=== PATIENT | male | born 1955 | race Caucasian/White ===

== ENCOUNTER 2017-05-16 14:42 | Emergency (ER) | payer BC ==
[2017-05-16] MEDS ORDERED: Sodium Chloride 0.9% 10 ML Syringe FLUSH PRN (15:31)
[2017-05-16] MEDS ORDERED: Sodium Chloride 0.9% 1,000 ML IV ONE (15:32)
--- NOTE | 2017-05-16 16:13 | EDM.PDOC ---
ED HPI GENERAL MEDICAL PROBLEM - General Chief Complaint: Headache Stated Complaint: SYNCOPE/NAUSEA Time Seen by Provider: 05/16/17 15:20 Source of Information: Reports: Patient History Limitations: Reports: No Limitations - History of Present Illness INITIAL COMMENTS - FREE TEXT/NARRATIVE: 62-year-old male presents for evaluation treatment of a headache. Patient reports he was at work. Reports that Today he had a sudden onset of a severe headache and his occipital scalp radiating down to his neck. He reports associated symptoms of nausea and dizziness. He denies any syncope, vomiting, fevers, cough, urinary symptoms, earaches or sore throat. He states that he has had headaches before but he has never had a headache like this. No treatment prior to arrival in the ER. Patient reports he is healthy with no known medical conditions. He is not on any medications. Onset: Today, Sudden Duration: Hour(s): (3.5) Location: Reports: Head, Neck Headache Pain Score (Numeric/FACES): 10 - Related Data Allergies Allergy/AdvReac Type Severity Reaction Status Date / Time No Known Allergies Allergy Verified 05/16/17 15:01 Home Meds: Home Meds . [No Known Home Meds] 05/16/17 [History] Past Medical History Gastrointestinal History: Reports: None - Past Surgical History GI Surgical History: Reports: Cholecystectomy Musculoskeletal Surgical History: Reports: Knee Replacement Social & Family History - Family History Family Medical History: Noncontributory - Tobacco Use Smoking Status *Q: Never Smoker - Caffeine Use Caffeine Use: Reports: None - Recreational Drug Use Recreational Drug Use: No ED ROS GENERAL - Review of Systems Review Of Systems: See Below Constitutional: Denies: Fever HEENT: Denies: Ear Pain, Sinus Problem Respiratory: Denies: Cough GI/Abdominal: Reports: Nausea. Denies: Abdominal Pain, Diarrhea, Vomiting : Reports: No Symptoms. Denies: Dysuria Musculoskeletal: Reports: Neck Pain. Denies: Back Pain Neurological: Reports: Dizziness, Headache. Denies: Syncope - Physical Exam Exam: See Below Exam Limited By: No Limitations General Appearance: Alert, WD/WN, No Apparent Distress Eye Exam: Bilateral Eye: EOMI, PERRL Ears: Normal External Exam, Normal Canal, Hearing Grossly Normal, Normal TMs Nose: Normal Inspection Throat/Mouth: Normal Inspection, Normal Lips, Normal Gums, Normal Oropharynx, Normal Voice, No Airway Compromise Head Exam: Atraumatic, Normocephalic Neck: Normal Inspection, Supple, Full Range of Motion, Tender Midline Respiratory/Chest: No Respiratory Distress, Lungs Clear, Normal Breath Sounds Cardiovascular: Normal Peripheral Pulses, Regular Rate, Rhythm, No Murmur Neuro Exam (Abbreviated): Alert, Oriented, Normal Cognition, Normal Gait, No Motor/Sensory Deficits Back Exam: Normal Inspection Psychiatric: Normal Affect, Normal Mood Skin Exam: Warm, Dry, Normal Color Course - Vital Signs Last Recorded V/S: Last Vital Signs Temp 37.9 C 05/16/17 18:34 Pulse 84 05/16/17 18:34 Resp 22 H 05/16/17 15:01 BP 139/74 05/16/17 18:34 Pulse Ox 98 05/16/17 18:34 - Orders/Labs/Meds Labs: Laboratory Tests 05/16/17 05/16/17 Range/Units 15:08 15:08 WBC 9.87 H (4.23-9.07) K/mm3 RBC 5.19 (4.63-6.08) M/mm3 Hgb 15.5 (13.7-17.5) gm/L Hct 45.5 (40.1-51.0) % MCV 87.7 (79.0-92.2) fl MCH 29.9 (25.7-32.2) pg MCHC 34.1 (32.2-35.5) g/dl RDW Std Deviation 42.2 (35.1-43.9) fL Plt Count 193 (163-337) K/mm3 MPV 10.2 (9.4-12.3) fl Neut % (Auto) 82.8 H (34.0-67.9) % Lymph % (Auto) 8.6 L (21.8-53.1) % Day % (Auto) 6.1 (5.3-12.2) % Eos % (Auto) 2.1 (0.8-7.0) Baso % (Auto) 0.2 (0.1-1.2) % Neut # (Auto) 8.17 H (1.78-5.38) K/mm3 Lymph # (Auto) 0.85 L (1.32-3.57) K/mm3 Day # (Auto) 0.60 (0.30-0.82) K/mm3 Eos # (Auto) 0.21 (0.04-0.54) K/mm3 Baso # (Auto) 0.02 (0.01-0.08) K/mm3 Manual Slide Review Normal smear Sodium 141 (136-145) mEq/L Potassium 3.8 (3.5-5.1) mEq/L Chloride 106 (98-107) mEq/L Carbon Dioxide 24 (21-32) mEq/L Anion Gap 14.8 (5-15) BUN 16 (7-18) mg/dL Creatinine 1.2 (0.7-1.3) mg/dL Est Cr Clr Drug Dosing 66.75 mL/min Estimated GFR (MDRD) > 60 (>60) mL/min BUN/Creatinine Ratio 13.3 L (14-18) Glucose 101 (80-115) mg/dL Calcium 8.7 (8.5-10.1) mg/dL Total Bilirubin 0.8 (0.2-1.0) mg/dL AST 23 (15-37) U/L ALT 46 (16-63) U/L Alkaline Phosphatase 72 (46-116) U/L Total Protein 7.3 (6.4-8.2) g/dl Albumin 3.9 (3.4-5.0) g/dl Globulin 3.4 gm/dL Albumin/Globulin Ratio 1.2 (1-2) Meds: Medications Discontinued Medications Generic Name Dose Route Start Last Admin Trade Name Freq PRN Reason Stop Dose Admin Diphenhydramine HCl 50 mg 05/16/17 16:46 05/16/17 16:53 Benadryl IVPUSH 05/16/17 16:47 50 mg ONETIME ONE Administration Sodium Chloride 1,000 mls @ 999 mls/hr 05/16/17 15:32 05/16/17 15:38 Normal Saline IV 05/16/17 16:32 999 mls/hr ONETIME ONE Administration Ketorolac Tromethamine 30 mg 05/16/17 16:46 05/16/17 17:00 Toradol IVPUSH 05/16/17 16:47 30 mg ONETIME ONE Administration Metoclopramide HCl 5 mg 05/16/17 16:46 05/16/17 16:56 Reglan IVPUSH 05/16/17 16:47 5 mg ONETIME ONE Administration Sodium Chloride 10 ml 05/16/17 15:31 05/16/17 15:38 Saline Flush FLUSH 10 ml ASDIRECTED PRN Administration Keep Vein Open - Radiology Interpretation Free Text/Narrative:: CT of the head without contrast impression per Dr. Andres: 1. Sinus findings most likely representin mild chronic sinusitis. 2. No acute intracranial abnormality is identified CT of the cervical spine without contrast impression per Dr. Andres: 1. Moderate neural foraminal stenosis noted at C3-C4 on the left side. This is due to degenerative spurring from the apophyseal joint as well as degenerative spurring from the uncovertebral joint. 2. Other degenerative changes. 3. Nothing acute is identified on CT study of the cervical spine. CT Results Date: 05/16/17 - Re-Assessments/Exams Free Text/Narrative Re-Assessment/Exam: 05/16/17 17:32 Labs returned. WBC 9.87, hgb is 15.5 and plts are 193 sodium is 141, potassium is 3.8, chloride is 106. Anion gap is 14.8. Glucose is 101. Creatinine is 1.2. I Reviewed the labs and CT with the patient. Once CT was clear of any bleed I ordered toradol, benadryl and reglan. At this point the headache is a 4 or 5 out of 10. Noted that he lightly elevated temp now. He denies any cough, abdominal pain, diarrhea, urinary symptoms or anything concerning for infection. At this point feels comfortable going home. We will discharge him home. Discharge instructions as document. Departure - Departure Time of Disposition: 17:33 Disposition: Home, Self-Care 01 Condition: Fair Clinical Impression: Headache - Discharge Information Instructions: General Headache Without Cause Referrals: PCP,None [Primary Care Provider] - Kristy Santana [Physician] - Forms: ED Department Discharge Additional Instructions: go home and rest in a dark quiet room. Make sure drinking plenty of fluids. If you continue to have trouble with headaches I recommend follow-up with family medicine. Recommend Dr. Rojas. Call [phone] Rojas. Please return to ER if your symptoms change or worsen.
--- NOTE | 2017-05-16 16:20 | CT ---
CT cervical spine Technique: Multiple axial sections were obtained from above C1 inferiorly to the top the C1. C7-T1 articulation was not included on the exam. Findings: Mild disc space narrowing is noted at C5-C6 and C6-C7. Slight posterior ridging is noted at C5-C6 and C6-C7. Endplate osteophytes are noted at C2-C3, C4-C5, C5-C6 and C6-C7. Mastoid sinuses and middle ear cavities are clear. No posterior skull base abnormality is seen. Moderately severe left-sided neural foraminal stenosis noted at C3-C4. Other neural foramina are patent. No bony central canal stenosis is seen. Vertebral bodies and posterior arches are intact with no fracture being seen. No abnormal subluxation is seen on the reconstructed sagittal images. Degenerative apophyseal change is seen most prominent at C3-C4 on the left side. Mild spurring is noted within the left uncovertebral joint at C3-C4. Impression: 1. Moderate neural foraminal stenosis noted at C3-C4 on the left side. This is due to degenerative spurring from the apophyseal joint as well as degenerative spurring from the uncovertebral joint. 2. Other degenerative change as noted above. 3. Nothing acute is identified on CT study of the cervical spine. Note is made that C7 and T1 were not included on the study. Diagnostic code #3
--- NOTE | 2017-05-16 16:39 | CT ---
Head CT Technique: Multiple axial sections through the brain were obtained. Intravenous contrast was not utilized. Comparison: No previous study. Findings: Ventricles along with basal cisterns and sulci over convexities are within normal limits for the patient's age. No abnormal parenchymal densities are seen. No evidence of intracranial hemorrhage. No midline shift or mass effect is seen. Moderate mucosal thickening is seen within the inferior maxillary sinuses. Paranasal sinuses are otherwise clear. No air-fluid levels are seen. No acute calvarial abnormality is seen. Impression: 1. Sinus findings most likely representing mild chronic sinusitis. 2. No acute intracranial abnormality is identified. Diagnostic code #2
[2017-05-16] MEDS ORDERED: diphenhydrAMINE 50 MG/ML SDV IVPUSH ONE (16:46)
[2017-05-16] MEDS ORDERED: Ketorolac 30 MG/ML SDV IVPUSH ONE (16:46)
[2017-05-16] MEDS ORDERED: Metoclopramide 10 MG/2 ML SDV IVPUSH ONE (16:46)
[2017-05-16 18:35] VITALS: BP 139/74
== END 2017-05-16 18:10 | disposition home or self-care (01) ==
LOC: JD.ED 14:42
DX: R51 Headache (principal); Z90.49 Acquired absence of other specified parts of digestive tract
CPT/HCPCS: 36415; 70450; 72125; 80053; 85025; 96361; 96374; 96375; 99284; J1200; J1885; J2765; J7040; J7050; 99283

== ENCOUNTER 2021-01-07 18:33 | Emergency (ER) | payer BC ==
--- NOTE | 2021-01-07 18:51 | EDM.PDOC ---
ED HPI GENERAL MEDICAL PROBLEM - General Chief Complaint: Lower Extremity Injury/Pain Stated Complaint: SENT BY FIGUEROA/BLOOD CLOT Time Seen by Provider: 01/07/21 18:51 Source of Information: Reports: Patient History Limitations: Reports: No Limitations - History of Present Illness INITIAL COMMENTS - FREE TEXT/NARRATIVE: 65-year-old male presents to the ED with a confirmed extensive DVT in his right lower extremity that involves popliteal anterior posterior tibial veins and superficial femoral with clot at the femoral superficial femoral junction in the groin. He has no symptoms of PE such as dyspnea, cough, hemoptysis or pleuritic pain. O2 sats are 97% on room air. Patient is scheduled for [facility] in [place] tomorrow. Patient has been doing a home exercise program which involves pedaling with his legs and knees almost at 90 degree angle i.e. more of an up-and-down type exercise that might of kinked off the popliteal vein right leg. There is no clinical evidence of DVT in the left lower extremity. He was sent over from [facility] where Doppler ultrasound confirmed extensive DVT. He has labs that were done preoperatively by Dr. Blakely that reveal that he has normal renal function with a creatinine of 1.2 and a GFR greater than 60. Patient has no past history of DVT. No trauma to the right lower extremity. He is active feeding his horses twice daily walking most of the day no prolonged sitting no recent prolonged travel history. Initiated popliteal pain 3 days ago and then obvious significant swelling left calf over the last 2 days with mild pain on walking. Onset: Gradual Onset Date: 01/05/21 Duration: Day(s):, Getting Worse Location: Reports: Lower Extremity, Right (Right lower extremity is swollen) Quality: Reports: Ache, Throbbing Severity: Mild Improves with: Reports: Rest Worsens with: Reports: Movement Context: Reports: Other (Spontaneous occurrence.). Denies: Activity (Walking), Exercise, Lifting, Sick Contact, Trauma Associated Symptoms: Denies: No Other Symptoms, Confusion, Chest Pain, Cough, cough w sputum, Diaphoresis, Fever/Chills, Headaches, Loss of Appetite, Malaise, Nausea/Vomiting, Rash, Seizure, Shortness of Breath, Syncope, Weakness Treatments PICKER: Reports: Other (see below) (Stopped Celebrex yesterday.) Other Treatments PICKER: tylenol this am Right Leg Pain Score (Numeric/FACES): 4 - Related Data Allergies Allergy/AdvReac Type Severity Reaction Status Date / Time No Known Allergies Allergy Verified 05/16/17 15:01 Home Meds: Home Meds Rivaroxaban [Xarelto] 15 mg PO BID #42 tab 01/07/21 [Rx] Rivaroxaban [Xarelto] 20 mg PO DAILY #30 tablet 01/07/21 [Rx] Past Medical History Gastrointestinal History: Reports: None Musculoskeletal History: Reports: Arthritis, Other (See Below) Other Musculoskeletal History: suppose to have left knee replacement but due to DVT-cancelled - Infectious Disease History Infectious Disease History: Reports: Chicken Pox, Measles - Past Surgical History GI Surgical History: Reports: Cholecystectomy Musculoskeletal Surgical History: Reports: Arthroscopic Procedure Other Musculoskeletal Surgeries/Procedures:: ACL repaIr Social & Family History - Family History Family Medical History: No Pertinent Family History - Tobacco Use Tobacco Use Status *Q: Never Tobacco User - Caffeine Use Caffeine Use: Reports: Soda - Recreational Drug Use Recreational Drug Use: No - Living Situation & Occupation Living situation: Reports: (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 Denies: Shortness of Breath, Wheezing Cardiovascular: Reports: No Symptoms GI/Abdominal: Reports: No Symptoms. Denies: Abdominal Pain, Decreased Appetite, Diarrhea Genitourinary: Reports: Other (nocturia x 2 ) Musculoskeletal: Reports: Joint Pain (Knees hips low back shoulders and neck at times.) Skin: Reports: No Symptoms Neurological: Reports: No Symptoms Psychiatric: Reports: No Symptoms ED EXAM, GENERAL - Physical Exam Exam: See Below Exam Limited By: No Limitations General Appearance: Alert, WD/WN, No Apparent Distress, Other (He has no known history of hypertension.) Eye Exam: Bilateral Eye: Normal Inspection (No blepharal pallor or scleral icterus.) Throat/Mouth: Normal Inspection, Normal Lips, Normal Teeth, Normal Oropharynx Head: Atraumatic, Normocephalic Neck: Normal Inspection, Supple, Non-Tender, Full Range of Motion, Lymphadenopathy (L). No: Lymphadenopathy (R) Respiratory/Chest: Lungs Clear, Normal Breath Sounds, Chest Non-Tender. No: Decreased Breath Sounds, Crackles, Rales, Rhonchi, Wheezing Cardiovascular: Normal Peripheral Pulses, Regular Rate, Rhythm, No Edema, No Gallop, No Murmur, No Rub Peripheral Pulses: 2+: Posterior Tibial (L), Posterior Tibial (R), Dorsalis Pedis (L), Dorsalis Pedis (R), 3+: Carotid (L), Carotid (R) GI/Abdominal: Normal Bowel Sounds, Soft, Non-Tender, No Organomegaly, No Mass, Pelvis Stable, Other (Mildly obese. Evidence of previous) (Male) Exam: No Hernia ( cholecystectomy.) Back Exam: Normal Inspection, Full Range of Motion. No: CVA Tenderness (L), CVA Tenderness (R) Extremities: Other (Thigh or groin. Clinically has DVT right lower extremity.) Neurological: Alert, Oriented, CN II-XII Intact, Normal Cognition. No: Normal Gait Psychiatric: Normal Affect, Normal Mood Skin Exam: Warm, Dry, Intact, Normal Color, No Rash #1 Interpretation EKG Date: 01/07/21 Time: 20:39 Rhythm: NSR Rate (Beats/Min): 60 [place]: Normal P-Wave: Present QRS: Other (Early R wave transition consider right ventricular hypertrophy/septal hypertrophy pattern. There are Q waves in leads II, III and aVF suggestive of an old inferior wall myocardial infarction.) ST-T: Other (Diffuse early repolarization pattern with no signs of ischemia) QT: Normal EKG Interpretation Comments: Abnormal ECG Course - Vital Signs Last Recorded V/S: Last Vital Signs Temp 36.4 C 01/07/21 21: Pulse 88 01/07/21 21: Resp 16 01/07/21 21: BP 125/85 01/07/21 21:01 Pulse Ox 94 L 01/07/21 21:01 - Orders/Labs/Meds Labs: Laboratory Tests 01/07/21 01/07/21 01/07/21 Range/Units 19:21 19:21 19:21 PT (9.7-12.0) SECONDS INR APTT (21.7-31.4) SECONDS Functional Protein C (73-180) % Functional Protein S (63-140) % Antithrombin III Ag 73 (72-124) % Factor V Leiden Mutat Comment Anti-Cardiolipin IgG Ab <9 (0-14) GPL U/mL 01/07/21 01/07/21 01/07/21 Range/Units 19:21 19:21 19:21 PT 11.1 (9.7-12.0) SECONDS INR 1.04 APTT 27.0 (21.7-31.4) SECONDS Functional Protein C 99 (73-180) % Functional Protein S 111 (63-140) % Antithrombin III Ag (72-124) % Factor V Leiden Mutat Anti-Cardiolipin IgG Ab (0-14) GPL U/mL Meds: Medications Discontinued Medications Generic Name Dose Route Start Last Admin Trade Name Freq PRN Reason Stop Dose Admin Enoxaparin Sodium 100 mg 01/07/21 19:07 01/07/21 19:18 Lovenox SUBCUT 01/07/21 19:08 100 mg ONETIME ONE Administration Sodium Chloride 1,000 mls @ 100 mls/hr 01/07/21 19:15 01/07/21 19:32 Normal Saline IV 100 mls/hr ASDIRECTED CHANTELLE Administration Rivaroxaban 15 mg 01/08/21 17:00 Xarelto PO 01/08/21 17:01 ONETIME ONE Rivaroxaban 15 mg 01/07/21 20:43 01/07/21 20:50 Xarelto PO 01/07/21 20:44 15 mg ONETIME STA Administration - Radiology Interpretation Free Text/Narrative:: 65-year-old male presents to the ED for evaluation of possible PE. He was recently diagnosed today with an extensive DVT in his right lower extremity that extends from involvement of both anterior posterior tibial veins popliteal vein and superficial femoral vein up to the bifurcation of the femoral vein. He has no signs or symptoms of PE at this time. Clinically he does have an extensive DVT in his right lower extremity. Plan labs will be drawn for genetic factors that place him at risk of DVT. PT and PTT INR will be drawn as well. He will have CT pulmonary angiogram performed. He will be given Lovenox 100 mg subcu at this time. Plan will then be to place him on Xarelto 15 mg twice daily for 21 days and then 20 mg once daily after this for at least 3 months depending on the results of the CT pulmonary angiogram. - Re-Assessments/Exams Free Text/Narrative Re-Assessment/Exam: 01/07/21 20:39 CT pulmonary angiogram does reveal multiple filling defects within the distal right main pulmonary artery extending into the superior and inferior segmental branches of the pulmonary arteries. Smaller pulmonary emboli are seen within the segmental branches of the left lower lung pulmonary artery and within the lingular artery. There are smaller pulmonary emboli seen within the right upper lung pulmonary arterial system. Ventricular size within normal limits with no evidence of strain. Thoracic aorta shows no aneurysm. Mediastinum shows no adenopathy. No pericardial thickening is appreciated. Very small hiatal hernia is noted. Patient has had a previous cholecystectomy. Lungs show no acute parenchymal changes. No pleural effusions or acute parenchymal changes seen within either lung. Bone window settings were reviewed and showed scattered degenerative change within the thoracic spine. No acute o sseous findings are appreciated. Plan the patient will be started on Xarelto 50 mg twice daily for 3 weeks and then 20 mg once daily to complete a 6-month treatment program. Depending on his genetic studies which will determine if he needs to stay on medication for the rest of his life will determine when he can actually have his total knee repaired. Advised to be very inactive in terms of walking for the next 5 days until medication becomes effective in preventing clot propagation and hopefully further spreading to his lungs. He is to follow- up in the clinic in 10 days time. Departure - Departure Time of Disposition: 20:41 Disposition: Home, Self-Care 01 Condition: Fair Clinical Impression: Bilateral pulmonary embolism Deep vein thrombosis of right lower extremity Qualifiers: Affected thrombotic vein of extremity: unspecified lower extremity distal vein Chronicity: acute Qualified Code(s): I82.4Z1 - Acute embolism and thrombosis of unspecified deep veins of right distal lower extremity - Discharge Information *PRESCRIPTION DRUG MONITORING PROGRAM REVIEWED*: Not Applicable *COPY OF PRESCRIPTION DRUG MONITORING REPORT IN PATIENT TONY: Not Applicable Prescriptions: Rivaroxaban [Xarelto] 15 mg PO BID #42 tab Rivaroxaban [Xarelto] 20 mg PO DAILY #30 tablet Instructions: Pulmonary Embolism, Deep Vein Thrombosis Referrals: Vimal Bailey MD [Primary Care Provider] - Forms: ED Department Discharge Additional Instructions: Evaluation in the emergency room tonight in regards to diagnosis of a extensive blood clot in the deep venous system of your right leg extending from mid calf all the way up to your right groin. No symptoms in terms of respiratory system. CT pulmonary angiogram does however reveal bilateral pulmonary emboli or clots within the lungs slightly worse on the right side as compared to the left. This is occurred from clot breaking off in the right lower extremity and traveling up through the venous system and through the heart and into the lungs where it becomes lodged. Lab work was sent away to look for genetic problems that may make you more hypercoagulable. Recent exercise program at home to try and strengthen quad muscles before total knee surgery may have contributed to development of DVT. At any rate treatment was started in the emergency room with Lovenox 100 mg given subcutaneously to start thinning her blood and prevent clot formation. Also initial dose of Xarelto 15 mg was given in the emergency room tonight. 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 You should be on medication ideally for around 6 months after identifying a pulmonary embolism. Depending on the genetic studies it will determine whether or not you need to stay on a blood thinner such as Xarelto for the rest of your life. Your total knee surgery will have to be put off for another 6 months until you complete medication. For the next 5 days you should minimize activities such as walking or exercising elevating the leg is much as possible with application of heat to the back of the calf and knee for 1/2-hour out of every 4 hours will help break up the clot. After 5 days you may resume normal activities such as walking but I would avoid exercising for another week. Suggest follow-up in clinic with your primary care provider in 10 days time to make sure you are doing okay. Return to the ED sooner if you develop any chest pain, cough or coughing up blood. Of note this is highly unlikely to occur.
[2021-01-07] MEDS ORDERED: Enoxaparin 100 MG/1 ML Syringe SUBCUT ONE (19:07)
[2021-01-07] MEDS ORDERED: Sodium Chloride 0.9% 1,000 ML IV SCH (19:15)
--- NOTE | 2021-01-07 20:25 | CT ---
CT chest Technique: Multiple axial sections through the chest were obtained. Intravenous contrast was utilized. Study has been performed as a pulmonary angiogram protocol. Comparison: None available. Findings: Filling defects are seen within the distal right main pulmonary artery extending into the superior and inferior segmental branches of the pulmonary arteries. Smaller pulmonary emboli are seen within the segmental branches of the left lower lung pulmonary artery and within the lingular artery. There are smaller pulmonary emboli seen within the right upper lung pulmonary artery. Ventricular size within the heart appears within normal limits. Thoracic aorta shows no aneurysm. Mediastinum shows no adenopathy. No pericardial thickening is appreciated. Very small hiatal hernia is noted. Previous cholecystectomy is seen. Lungs show no acute parenchymal change. No pleural effusions or acute parenchymal change is seen within either lung. Bone window settings were reviewed which show scattered degenerative change within the spine. No acute osseous finding is appreciated. Impression: 1. Pulmonary emboli as noted above. 2. Other findings believed to be incidental as described above. Diagnostic code #5
[2021-01-07] MEDS ORDERED: Rivaroxaban 15 MG Tab PO STA (20:43)
[2021-01-07 21:03] VITALS: BP 125/85; PULSE 88
[2021-01-08] MEDS ORDERED: Rivaroxaban 15 MG Tab PO ONE (17:00)
== END 2021-01-07 21:06 | disposition home or self-care (01) ==
LOC: JD.ED 18:33
DX: I82.441 Acute embolism and thrombosis of right tibial vein (principal); I82.431 Acute embolism and thrombosis of right popliteal vein; I82.411 Acute embolism and thrombosis of right femoral vein; Z79.01 Long term (current) use of anticoagulants; I26.99 Other pulmonary embolism without acute cor pulmonale
CPT/HCPCS: 36415; 71275; 81241; 85301; 85303; 85306; 85610; 85730; 86147; 93005; 96372; 99284; A9270; J1650; J7030; 93010

== ENCOUNTER 2023-08-05 18:13 | Emergency (ER) | payer MEDICARE, BC ==
[2023-08-05] MEDS ORDERED: Sodium Chloride 0.9% 10 ML Syringe FLUSH PRN (18:31)
[2023-08-05 18:37] LABS: BASOPHILS PERCENT AUTO 0.4 % (0.0-1.0); EOSINOPHILS ABSOLUTE AUTO 0.4 K/mm3 (0.0-0.4); EOSINOPHILS PERCENT AUTO 3.8 % (0.0-6.0); HEMATOCRIT 39.6 % (42.0-52.0); HEMOGLOBIN 13.6 gm/dl (14.0-18.0); IMMATURE GRAN ABSOLUTE AUTO 0.03 K/mm3 (0.00-0.05); IMMATURE GRAN PERCENT AUTO 0.3 % (0.0-0.4); LYMPHOCYTES ABSOLUTE AUTO 2.3 K/mm3 (1.0-4.8); LYMPHOCYTES PERCENT AUTO 24.7 % (24.0-44.0); MEAN CORPUSCULAR HEMOGLOBIN 30.3 pg (28.0-32.0); MEAN CORPUSCULAR HGB CONC 34.3 g/dl (32.0-36.0); MEAN CORPUSCULAR VOLUME 88.2 fl (83.0-99.0); MEAN PLATELET VOLUME 9.4 fl (9.4-12.4); MONOCYTES ABSOLUTE AUTO 0.6 K/mm3 (0.0-0.8); NEUTROPHILS PERCENT AUTO 64.8 % (41.0-71.0); PLATELET COUNT,PLT 227 K/mm3 (150-400); RED BLOOD CELL COUNT 4.49 M/mm3 (4.52-5.90); WHITE BLOOD CELL COUNT,WBC 9.29 K/mm3 (3.9-11.3)
[2023-08-05 19:08] LABS: A/G RATIO 1.2 (1-2); ALANINE AMINOTRANSFERASE,ALT 23 U/L (16-63); ALBUMIN 3.8 g/dl (3.4-5.0); ALKALINE PHOSPHATASE 73 U/L (46-116); ANION GAP 10.4 (5-15); ASPARTATE AMNIOTRANSFERASE,AST 21 U/L (15-37); BILIRUBIN TOTAL 0.4 mg/dL (0.2-1.0); BLOOD UREA NITROGEN,BUN 15 mg/dL (7-18); C-REACTIVE PROTEIN <0.2 mg/dL (<1.0); CALCIUM 8.9 mg/dL (8.5-10.1); CARBON DIOXIDE,CO2 26 mEq/L (21-32); CHLORIDE,CL 106 mEq/L (98-107); EST CRCL DRUG DOSING (CG) 74.01 mL/min; ESTIMATED GFR 82 mL/min (>60); GLUCOSE RANDOM 122 mg/dL (70-99); MAGNESIUM 1.8 mg/dL (1.8-2.4); POTASSIUM,K 3.4 mEq/L (3.5-5.1); SODIUM,NA 139 mEq/L (136-145); TROPONIN I HIGH SENSITIVITY 13 pg/mL (<=76); TSH 2.691 uIU/mL (0.358-3.74)
== END 2023-08-05 20:42 | disposition home or self-care (01) ==
LOC: JD.ED 18:13
DX: R07.9 Chest pain, unspecified (principal); Z79.02 Long term (current) use of antithrombotics/antiplatelets
CPT/HCPCS: 36415; 71045; 71045-26; 80053; 83735; 83880; 84443; 84484; 85025; 85379; 86140; 93005; 93010; 99282; 99285

== ENCOUNTER 2023-09-14 06:50 | Day surgery (SDC) | payer MEDICARE, BC ==
[~2023-09-14 06:50] MED LIST: Acetaminophen 325 MG Tab PO ONE; Dexamethasone 4 MG/ML 5 ML MDV ONE; Ketorolac 30 MG/ML SDV ONE; Lactated Ringers 1,000 ML IV SCH; Lidocaine 1% 5 ML VIAL ONE; Midazolam 1 MG/ML 2 ML SDV ONE; Ondansetron 4 MG/2 ML SDV ONE; Pregabalin 25 MG Cap PO ONE; Propofol 200 MG/20 ML SDV ONE; Sodium Chloride 0.9% 10 ML Syringe FLUSH PRN; Sodium Chloride 0.9% 10 ML Syringe FLUSH SCH; ceFAZolin 2 GM Vial ONE; fentaNYL 100 MCG/2 ML SDV ONE; oxyCODONE ER 10 MG TAB.ER PO ONE
[2023-09-14] MEDS ORDERED: EPINEPHrine 1 MG/ML SDV ONE (06:57)
[2023-09-14] MEDS ORDERED: Ropivacaine 0.5% 5 MG/ML 30 ML SDV ONE (06:57)
[2023-09-14] MEDS: Vancomycin 1 GM SDV ONE ×2 (07:28→09:50)
[2023-09-14] MEDS: Morphine 8 MG, EPINEPHrine 0.3 MG, Cefuroxime 750 MG, Ketorolac 30 MG, Sodium Chloride ... PRN ×10 (07:28→09:41)
[2023-09-14] MEDS: Tranexamic Acid 1,000 MG/10 ML Vial ONE ×2 (07:28→09:50)
[2023-09-14] MEDS ORDERED: Dexmedetomidine 200 MCG/2 ML SDV ONE (08:00)
[2023-09-14] MEDS ORDERED: ePHEDrine 50 MG/ML SDV ONE (08:28)
[2023-09-14] MEDS ORDERED: Phenylephrine 1% 10 MG/ML SDV ONE (09:30)
[2023-09-14] MEDS ORDERED: Propofol 200 MG/20 ML SDV ONE (09:40)
[2023-09-14] MEDS ORDERED: Lactated Ringers 1,000 ML ONE ×2 (09:48)
[2023-09-14] MEDS ORDERED: Ondansetron 4 MG/2 ML SDV IVPUSH PRN (10:14)
[2023-09-14] MEDS ORDERED: fentaNYL 100 MCG/2 ML SDV IVPUSH PRN (10:14)
[2023-09-14] MEDS ORDERED: HYDROmorphone 0.5 MG/0.5 ML Syringe IVPUSH PRN (10:14)
[2023-09-14] MEDS ORDERED: oxyCODONE 5 MG Tab PO PRN (10:42)
[2023-09-14] MEDS ORDERED: Cyclobenzaprine 10 MG Tab PO PRN (10:42)
== END 2023-09-14 14:45 | disposition home or self-care (01) ==
LOC: JD.SDS 06:50
PROVIDERS: ATTEND Orthopaedic Surgery
DX: M17.12 Unilateral primary osteoarthritis, left knee (principal); I10 Essential (primary) hypertension; I82.411 Acute embolism and thrombosis of right femoral vein; Z79.01 Long term (current) use of anticoagulants; Z90.49 Acquired absence of other specified parts of digestive tract; Z79.899 Other long term (current) drug therapy; Z96.698 Presence of other orthopedic joint implants
CPT/HCPCS: 0055T; 27447; 64447; 73560; 97110; 97116; 97161; A9270; C1713; C1776; J0171; J0690; J0697; J1100; J1885; J2250; J2270; J2371; J2405; J2704; J2795; J3010; J3370; J7030; J7120; 01402; J3490

== ENCOUNTER 2024-09-07 08:53 | Emergency (ER) | payer MEDICARE, BC | END 2024-09-07 12:30 | disposition home or self-care (01) | LOC: JD.ED 08:53 | DX: I82.451 Acute embolism and thrombosis of right peroneal vein (principal); I10 Essential (primary) hypertension; Z90.49 Acquired absence of other specified parts of digestive tract; Z79.899 Other long term (current) drug therapy | CPT/HCPCS: 93971-26-RT; 93971-RT; 99283; 99284 ==

== ENCOUNTER 2025-01-06 09:39 | Day surgery (SDC) | payer MEDICARE, BC ==
[~2025-01-06 09:39] MED LIST changes: -Acetaminophen 325 MG Tab PO ONE; -Dexamethasone 4 MG/ML 5 ML MDV ONE; -Ketorolac 30 MG/ML SDV ONE; -Lactated Ringers 1,000 ML IV SCH; -Lidocaine 1% 5 ML VIAL ONE; -Midazolam 1 MG/ML 2 ML SDV ONE; -Ondansetron 4 MG/2 ML SDV ONE; -Pregabalin 25 MG Cap PO ONE; -Propofol 200 MG/20 ML SDV ONE; -ceFAZolin 2 GM Vial ONE; -fentaNYL 100 MCG/2 ML SDV ONE; -oxyCODONE ER 10 MG TAB.ER PO ONE
[2025-01-06] MEDS: Lactated Ringers 1,000 ML IV SCH (10:00)
[2025-01-06] MEDS ORDERED: fentaNYL 100 MCG/2 ML SDV ONE (10:24)
[2025-01-06] MEDS ORDERED: Ondansetron 4 MG/2 ML SDV ONE (10:24)
[2025-01-06] MEDS ORDERED: Midazolam 1 MG/ML 2 ML SDV ONE (10:25)
[2025-01-06] MEDS ORDERED: ceFAZolin 2 GM Vial ONE (10:27)
[2025-01-06] MEDS: Acetaminophen 325 MG Tab PO ONE (10:31)
[2025-01-06] MEDS: Pregabalin 25 MG Cap PO ONE (10:31)
[2025-01-06] MEDS: oxyCODONE ER 10 MG TAB.ER PO ONE (10:31)
[2025-01-06] MEDS ORDERED: Propofol 200 MG/20 ML SDV ONE (11:39)
[2025-01-06] MEDS: Morphine 8 MG, EPINEPHrine 0.3 MG, Cefuroxime 750 MG, Ketorolac 30 MG, Sodium Chloride ... PRN (12:33)
[2025-01-06] MEDS: Tranexamic Acid 1,000 MG/10 ML Vial ONE (12:34)
[2025-01-06] MEDS: VANCOmycin 1 GM SDV ONE (12:34)
[2025-01-06] MEDS ORDERED: HYDROmorphone 0.5 MG/0.5 ML Syringe IVPUSH PRN (13:07)
[2025-01-06] MEDS ORDERED: Ondansetron 4 MG/2 ML SDV IVPUSH PRN (13:07)
[2025-01-06] MEDS ORDERED: fentaNYL 100 MCG/2 ML SDV IVPUSH PRN (13:07)
[2025-01-06] MEDS: oxyCODONE 5 MG Tab PO PRN (14:30)
== END 2025-01-06 17:40 | disposition home or self-care (01) ==
LOC: JD.SDS 09:39
PROVIDERS: ATTEND Orthopaedic Surgery
DX: M16.11 Unilateral primary osteoarthritis, right hip (principal); I10 Essential (primary) hypertension; E78.2 Mixed hyperlipidemia; Z79.01 Long term (current) use of anticoagulants; Z79.82 Long term (current) use of aspirin; Z79.899 Other long term (current) drug therapy
CPT/HCPCS: 01214; 73501-26-RT; 73501-RT; 97110-GP; 97116-GP; 97162-GP; 97530-GP; A9270-GY; C1713; C1776; J0171; J0690; J0697; J1885; J2250; J2272; J2405; J2704; J3010; J3490; J7120